=== PATIENT | male | born 1970 | race African-American/Black ===

== ENCOUNTER 2017-12-06 21:21 | Emergency (ER) | payer OTHER ==
[~2017-12-06] VITALS: Ht 180.3 cm; Wt 99.8 kg
[2017-12-06] MEDS ORDERED: KEFLEX500 M1 PO (21:35)
[2017-12-06] MEDS ORDERED: HYDROCODONE-AP1 EAC6 PO (21:36)
[2017-12-06] MEDS ORDERED: IBUPROFEN 800800 M1 PO (21:36)
[2017-12-06] MEDS ORDERED: LIDOCAINE VISC100 ML SWISH&SPIT (21:36)
[2017-12-06 21:45] VITALS: BP 136/78
== END 2017-12-06 21:46 | disposition home or self-care (01) ==
LOC: M.ERS 21:21
DX: K08.89 Other specified disorders of teeth and supporting structures (principal)

== ENCOUNTER 2017-12-09 13:12 | Emergency (ER) | payer OTHER ==
[~2017-12-09] VITALS: Ht 172.7 cm; Wt 95.3 kg
[~2017-12-09 13:12] MED LIST: HYDROCODONE-AP1 EAC6 PO; IBUPROFEN 800800 M1 PO; KEFLEX500 M1 PO; LIDOCAINE VISC100 ML SWISH&SPIT
[2017-12-09 14:09] VITALS: BP 148/97
== END 2017-12-09 14:10 | disposition home or self-care (01) ==
LOC: M.ERS 13:12
DX: K02.9 Dental caries, unspecified (principal)

== ENCOUNTER 2021-05-07 06:04 | Emergency (ER) | payer OTHER ==
[~2021-05-07] VITALS: Ht 180.3 cm; Wt 97.1 kg
[2021-05-07 06:28] LABS: URINE BILIRUBIN NEGATIVE (Negative); URINE BLOOD TRACE (Negative); URINE CLARITY CLEAR; URINE COLOR YELLOW; URINE GLUCOSE-RANDOM NEGATIVE (Negative); URINE KETONES NEGATIVE (Negative); URINE LEUKOCYTES-REFLEX NEGATIVE (Negative); URINE NITRITE-REFLEX NEGATIVE (Negative); URINE PROTEIN 2+ (Negative); URINE SPECIFIC GRAVITY 1.025 (1.005-1.030); URINE UROBILINOGEN 0.2 E.U./dl (0.2-1.0)
[2021-05-07] MEDS ORDERED: HYDROXYZINE HCL25 M2 PO (06:31)
[2021-05-07] MEDS ORDERED: FLUOXETINE HCL60 MG PO (06:31)
[2021-05-07 07:08] LABS: HYALINE CASTS 4-10 Moderate /LPF (None Seen); SQUAMOUS 0-3 Few /LPF (0-3)
[2021-05-07 07:09] LABS: BACTERIA-REFLEX 1-9 Few /HPF (None Seen); CRYSTALS None Seen /LPF (None Seen); URINE RBC None Seen /HPF (0-2); URINE WBC-REFLEX 0-5 Rare /HPF (0-5)
[2021-05-07 07:26] LABS: ABSOLUTE EOSINOPHILS 0.3 thou/uL (0.0-0.7); ABSOLUTE LYMPHOCYTES 1.7 thou/uL (0.8-5.3); ABSOLUTE MONOCYTES 0.7 thou/uL (0.0-1.2); ABSOLUTE NEUTROPHILS 3.6 thou/uL (1.6-8.1); BASOPHILS 0.7 %; EOSINOPHILS 5.3 %; HEMATOCRIT 39.7 % (42.0-52.0); HEMOGLOBIN 13.4 gm/dL (14.0-18.0); LYMPHOCYTES 26.4 %; MCHC 33.7 g/dL (28.0-37.0); MCV 94.9 fL (80.0-100.0); MONOCYTES 10.4 %; MPV 7.9 fl. (7.2-11.1); NUCLEATED RBCS 0 /100WBC; PLATELET COUNT* 201 thou/uL (150-400); POLYS 57.2 %; RBC 4.19 mil/uL (4.50-6.00); RDW-CV 12.4 % (10.5-14.5); WBC 6.3 thou/uL (4.0-11.0)
[2021-05-07 07:33] LABS: CALCIUM 8.5 mg/dL (8.5-10.1); CREATININE 0.8 mg/dL (0.6-1.3); POTASSIUM 3.7 mmol/L (3.5-5.1)
[2021-05-07] MEDS ORDERED: HYDROCODON-ACE1 EAC7 PO (09:08)
[2021-05-07] MEDS ORDERED: ZOFRAN ODT4 MG DISSOLVE (09:08)
[2021-05-07] MEDS ORDERED: CIPROFLOXACIN500 M1 PO (09:08)
[2021-05-07 09:15] VITALS: BP 131/75
== END 2021-05-07 09:16 | disposition home or self-care (01) ==
LOC: M.ERS 06:04
PROVIDERS: Emergency Medicine
DX: R10.84 Generalized abdominal pain (principal); F41.9 Anxiety disorder, unspecified; F32.9 Major depressive disorder, single episode, unspecified; Z79.899 Other long term (current) drug therapy